=== PATIENT | female | born 1965 | race African-American/Black ===

== ENCOUNTER → 2017-01-28 | Outpatient (CLI) | payer MEDICAID ==
--- NOTE | 2017-01-28 12:24 | WOMENS IMAGING REPORT ---
EXAM DESCRIPTION: BILAT SCREENING MAMMO W/CAD COMPLETED DATE/TIME: 01/28/2017 11:39 am REASON FOR STUDY: SCREENING MAMMO Z12.31 ENCNTR SCREEN MAMMOGRAM FOR MALIGNANT NEOPLASM OF JG COMPARISON: None. TECHNIQUE: Standard craniocaudal and mediolateral oblique views of each breast recorded using digita l acquisition. LIMITATIONS: None. FINDINGS: RIGHT BREAST MASSES: No discrete mass CALCIFICATIONS: Extensive pleomorphic calcifications upper outer quadrant. ARCHITECTURAL DISTORTION: None. DEVELOPING DENSITY: None. ASYMMETRY: Focal area of asymmetry in architecture distortion upper outer quadrant associated with ca lcifications. OTHER: No other significant findings. LEFT BREAST MASSES: No suspicious masses. CALCIFICATIONS: No new or suspicious calcifications. ARCHITECTURAL DISTORTION: None. DEVELOPING DENSITY: None. ASYMMETRY: None noted. OTHER: No other significant findings. Read with the assistance of CAD. .[facility] - R2 Cenova Version 1.3 .[facility] Imaging - R2 Cenova Version 1.3 .[facility] - R2 Cenova Version 2.4 .[facility] [place] - R2 Cenova Version 2.4 .[facility] - R2 Dye Colorist Dyer Version 9.2 IMPRESSION: Area of calcifications architecture distortion and asymmetry highly suspicious for malig tori upper outer quadrant of the right breast BREAST DENSITY: a. The breasts are almost entirely fatty. BIRAD: 0 Incomplete: Needs Additional Imaging Evaluation and/or prior Mammograms for Comparison. RECOMMENDATION: RECOMMENDED FOLLOW-UP: Ultrasound exam of the upper outer quadrant to assess for mas s. Biopsy with stereotactic or ultrasound guidance. The patient will be contacted for additional imaging. COMMENT: The patient has been notified of the results by letter per SA requirements. Additional no tification policies are in place for contacting patient with suspicious or incomplete findings. Quality ID #[id number]: [employer] [place] recommends an annual screening mammogram for women aged 40 years or over. This facility utilizes a reminder system to ensure that all patients receive reminder letters, and/or direct phone calls for appointments. This includes reminders for routine scr eening mammograms, diagnostic mammograms, or other Breast Imaging Interventions when appropriate. Th is patient will be placed in the appropriate reminder system. The [employer] [place] [employer] ([employer]) has developed recommendations for screening MRI of the breast s in certain patient populations, to be used in conjunction with mammography. Breast MRI surveillanc e may be appropriate for women with more than 20% lifetime risk of developing breast cancer as deter mined by genetic testing, significant family history of the disease, or history of mantle radiation f or Hodgkins Disease. ACR Practice Guidelines 2008. TECHNICAL DOCUMENTATION: FINDING NUMBER: (1) ASSESSMENT: (1) JOB ID: [id number] [employer]- All Rights Reserved
== END ==
LOC: WI 10:42
PROVIDERS: ATTEND Internal Medicine
DX: Z12.31 Encounter for screening mammogram for malignant neoplasm of breast (principal)
CPT/HCPCS: 77067; G0202

== ENCOUNTER 2017-02-17 09:24 | Emergency (ER) | payer MEDICAID ==
[2017-02-17] MEDS ORDERED: TETRACAINE HCL 0.5% OPH SOLN 2 ML OU ONE (09:53)
--- NOTE | 2017-02-17 09:59 | ER Document Report ---
ED General - General Chief Complaint: Eye Problem Stated Complaint: VAGINAL PAIN Time Seen by Provider: 02/17/17 09:38 Mode of Arrival: Ambulatory Information source: Patient Notes: 52-year-old female presents to ED for complaint of pain and drainage since yesterday. She also has vaginal pain for a week she states she has a knot on her right labia and that she has had knots on her labia as before that have had to be opened. She states she also has 2 kn on her left labia that are all painful. TRAVEL OUTSIDE OF THE [place] IN LAST 30 DAYS: No - HPI Onset: Other - See above Onset/Duration: Gradual Quality of pain: Achy - To the, Pressure - To the vaginal area Severity: Severe Pain Level: 5 Associated symptoms: Other - Bilateral eye pain and drainage, vaginal drainage pain with knots on left and right labia Exacerbated by: Movement Relieved by: Denies Similar symptoms previously: Yes Recently seen / treated by doctor: No - Related Data Allergies/Adverse Reactions: amoxicillin Allergy (Verified 02/17/17 09:28) Penicillins Allergy (Verified 02/17/17 09:28) Home Medications: Current Home Medications Albuterol Sulfate [Proair Hfa Inhalation Aerosol 8.5 gm Mdi] 1 puff IH Q4 PRN [History] Lisinopril/Hydrochlorothiazide [Lisinopril-Hctz 10-12.5 mg Tab] 10 mg PO DAILY 02/17/17 [History] Past Medical History - General Information source: Patient - Social History Smoking Status: Current Every Day Smoker Cigarette use (# per day): Yes - One third pack per day Chew tobacco use (# tins/day): No Smoking Education Provided: Yes - 4 minute Frequency of alcohol use: Occasional Drug Abuse: Marijuana Occupation: Disabled Lives with: Friend - Rheumatic Family History: Arthritis, CAD, COPD, CVA, DM, Hyperlipidemia, Hypertension, Malignancy, Thyroid Disfunction Patient has suicidal ideation: No Patient has homicidal ideation: No - Past Medical History Cardiac Medical History: Reports: Hx Hypercholesterolemia, Hx Hypertension Pulmonary Medical History: Reports: Hx Asthma, Hx Bronchitis, Hx Sleep Apnea EENT Medical History: Reports: None Neurological Medical History: Reports: Hx Migraine Endocrine Medical History: Reports: None Renal/ Medical History: Reports: Hx Kidney Stones, Hx Pelvic Inflammatory Disease, Other - Endometriosis Malignancy Medical History: Reports: None GI Medical History: Reports: None Musculoskeltal Medical History: Reports Hx Musculoskeletal Deformity, Reports Hx Musculoskeletal Trauma Skin Medical History: Reports None Psychiatric Medical History: Reports: None Traumatic Medical History: Reports: None Infectious Medical History: Reports: None Past Surgical History: Reports: Hx Gynecologic Surgery - Uterine ablation and scraping, Other - Pilonidal cyst Review of Systems - Review of Systems Constitutional: No symptoms reported EENT: Eye pain, Eye discharge Cardiovascular: No symptoms reported Respiratory: No symptoms reported Gastrointestinal: No symptoms reported Genitourinary: No symptoms reported Female Genitourinary: Other - Knots on left and right labia Musculoskeletal: No symptoms reported Skin: No symptoms reported Hematologic/Lymphatic: No symptoms reported Neurological/Psychological: No symptoms reported -: Yes All other systems reviewed and negative Physical Exam - Vital signs Vitals: Temp Pulse Resp BP Pulse Ox 98.2 F 70 18 133/85 H 96 02/17/17 09:31 02/17/17 09:31 02/17/17 09:31 02/17/17 09:31 02/17/17 09:31 Interpretation: Normal - General General appearance: Appears well, Alert - HEENT Head: Normocephalic, Atraumatic Eyes: Normal Conjunctiva: Injected, Purulent discharge Eyelashes: Matted Pupils: PERRL Ears: Normal External canal: Normal Tympanic membrane: Normal Sinus: Normal Nasal: Purulent discharge, Swelling Mouth/Lips: Normal Mucous membranes: Normal Pharynx: Post nasal drainage Neck: Normal - Respiratory Respiratory status: No respiratory distress Chest status: Nontender Breath sounds: Normal Chest palpation: Normal - Cardiovascular Rhythm: Regular Heart sounds: Normal auscultation Murmur: No - Abdominal Inspection: Normal Distension: No distension Bowel sounds: Normal Tenderness: Nontender Organomegaly: No organomegaly - Back Back: Normal, Nontender - Extremities General upper extremity: Normal inspection, Nontender, Normal color, Normal ROM , Normal temperature General lower extremity: Normal inspection, Nontender, Normal color, Normal ROM , Normal temperature, Normal weight bearing. No: Lisa's sign - Neurological Neuro grossly intact: Yes Cognition: Normal Orientation: AAOx4 Hayden Coma Scale Eye Opening: Spontaneous Hayden Coma Scale Verbal: Oriented Hayden Coma Scale Motor: Obeys Commands Hayden Coma Scale Total: 15 Speech: Normal Motor strength normal: LUE, RUE, LLE, RLE Sensory: Normal - Psychological Associated symptoms: Normal affect, Normal mood - Skin Skin Temperature: Warm Skin Moisture: Dry Skin Color: Normal Course - Re-evaluation Re-evalutation: 02/17/17 20:[address] Gregg who recommended consult with ophthalmology which I spoke with Dr. Kyle who agreed to have the patient be seen in his office at 1 PM. Patient was discharged at 1154 and instructed to go to see Dr. Kyle at 1 PM. - Vital Signs Vital signs: Temp Pulse Resp BP Pulse Ox 98.0 F 60 18 143/98 H 95 02/17/17 11:52 02/17/17 11:52 02/17/17 11:52 02/17/17 11:52 02/17/17 11:52 Discharge - Discharge Clinical Impression: Bartholin cyst, rash to face possible shingles, Pain, eye, right Condition: Stable Disposition: HOME, SELF-CARE Additional Instructions: Bartholin Gland Cyst or Abcess The Bartholin glands are located on each side of the entrance to the vagina. These glands secrete lubricating fluid. If a gland becomes plugged, it can create a "Bartholin's cyst." This creates a large bulge on one side of the labia. A cyst is usually not very painful. If a Bartholin's cyst or gland becomes infected, it creates an abscess. This is a painful collection of pus. One side of the labia becomes swollen, red , and painful. It will be very painful to walk or sit. When a Bartholin's cyst causes mild symptoms, it can sometimes be treated with sitz baths and antibiotics. A painful abscess usually needs to be drained ( lanced). If there are signs of infection in the tissues around the abscess, we prescribe antibiotics. Antibiotics are not always necessary for an abscess that' s been drained. If packing has been placed, it's important to follow up as scheduled for removal or replacement of the packing. Return if you have increasing fever, body aches, lightheadedness, or if the swelling and pain is getting worse. Shingles You have shingles. Shingles is caused by the chicken pox virus, The virus has been surviving dormant in a nerve cell since you had chicken pox years ago. The virus has spread down a nerve root to reach the skin. Typically, an band-like area of pain and skin sensitivity develops, then small blisters erupt in the area. Shingles lasts two or three weeks, but sometimes leaves persistent pain. You are contagious -- you can give children chicken pox. But you can't give anyone shingles. Antiviral medicines (such as acyclovir or famciclovir) can help, but the rash usually worsens for about a week. Pain medication is often given if the area hurts. Antihistamines such as Benadryl may be necessary for itching if it does not respond to soda baths and calamine lotion. Sometimes cortisone medicine or nerve-block shots are necessary if pain is severe. If the area remains severely painful as the sores heal, or if you suspect an infection developing in the sores, see your doctor. Acyclovir Acyclovir (Zovirax) is used to treat infections caused by the Herpes family of viruses. It's available as capsules or ointment. Zovirax is most effective if started at the first sign of the viral outbreak. It can decrease the severity and duration of symptoms. However, it doesn't eliminate the virus from the body completely. If you're prone to repeated outbreaks of herpes, you'll continue to have attacks. Apply ointment with a disposable glove or finger-cot to avoid spreading the virus with your finger. If pills have been prescribed, take them for the full recommended course. Occasionally, mild nausea or headaches may occur. Call the doctor if you develop wheezing, itching, rash, shortness of breath , or lightheadedness. Doxycycline Doxycycline (Vibramycin, Doryx) is an antibiotic of the tetracycline family. This type of drug is useful for infections of the respiratory tract and genital tract, and is sometimes used for intestinal infections. Unlike most tetracyclines, doxycycline can be taken with food. It is longer acting, and (usually) less prone to side effects than regular tetracycline. Tetracycline antibiotics can stain immature teeth and SHOULD NOT BE TAKEN BY CHILDREN, NURSING MOTHERS, OR WOMEN. Tetracyclines can make you more prone to sunburn. Abdominal cramping, nausea, and diarrhea are occasional side effects. Women may experience vaginal yeast infections. Call the doctor at once if you develop hives, itching, shortness of breath , or lightheadedness. FOLLOW-UP CARE: If you have been referred to a physician for follow-up care, call the physician s office for an appointment as you were instructed or within the next two days. If you experience worsening or a significant change in your symptoms, notify the physician immediately or return to the Emergency Department at any time for re-evaluation. Prescriptions: Acyclovir 800 mg PO 5XD #35 tablet Doxycycline Hyclate 100 mg PO BID #20 capsule Forms: Elevated Blood Pressure, Smoking Cessation Education Referrals: DION ROBERTS MD [ACTIVE STAFF] - Follow up as needed YENNY KYLE MD [ACTIVE STAFF] - 02/17/17 1:00 pm (see Dr Kyle at 1 pm )
[2017-02-17] MEDS ORDERED: DOXYCYCLINE HYCLATE 100 MG TABLET PO ONE (11:06)
[2017-02-17] MEDS ORDERED: ACYCLOVIR 200 MG CAPSULE PO ONE (11:06)
[2017-02-17 11:07] LABS: BACTERIA (WET MOUNT) 3+ BACTERIA SEEN; EPITHELIALS (WET MOUNT) 3+ EPITHELIALS SEEN; RBCS (WET MOUNT) NO RBCS SEEN; T.VAGINALIS (WET MOUNT) NO TRICHOMONAS SEEN; WBCS (WET MOUNT) 2+ WBCS SEEN; YEAST (WET MOUNT) NO YEAST SEEN
[2017-02-17 12:04] VITALS: BP 143/98
[2017-02-17 13:26] LABS: CHLAM PCR NOT DETECTED (NOT DETECT)
[2017-02-17 13:27] LABS: GON PCR NOT DETECTED (NOT DETECT)
== END 2017-02-17 11:54 | disposition home or self-care (01) ==
LOC: ER 09:24
DX: N75.0 Cyst of Bartholin's gland (principal); R21 Rash and other nonspecific skin eruption; H57.13 Ocular pain, bilateral; H57.8 Other specified disorders of eye and adnexa; R09.82 Postnasal drip; I10 Essential (primary) hypertension; J45.909 Unspecified asthma, uncomplicated; F17.210 Nicotine dependence, cigarettes, uncomplicated; Z71.6 Tobacco abuse counseling; Z88.0 Allergy status to penicillin
CPT/HCPCS: 99284; 87210; 87491; 87591; J3490 ×2

== ENCOUNTER 2017-04-13 08:43 | Emergency (ER) | payer MEDICAID ==
[2017-04-13 08:53] VITALS: BP 149/69
--- NOTE | 2017-04-13 09:36 | ER Document Report ---
HPI - HPI Patient complains to provider of: Skin rash to perineum Onset: Last week Onset/Duration: Persistent Quality of pain: Burning Pain Level: 3 Context: Patient complains of painful skin rash to perineum. Patient states she has had this for about the last week but has similar problem about 2 months ago. Patient denies any fever. Associated Symptoms: denies: Fever Exacerbated by: Denies Relieved by: Denies Similar symptoms previously: Yes Recently seen / treated by doctor: No - ROS ROS below otherwise negative: Yes Systems Reviewed and Negative: Yes All other systems reviewed and negative - CONSTITUTIONAL Constitutional: DENIES: Fever, Chills - REPRODUCTIVE Reproductive: DENIES: : Notes: Pain to perineum - DERM Skin Problems: Rash Past Medical History - General Information source: Patient - Social History Smoking Status: Current Every Day Smoker Smoking Education Provided: Yes Frequency of alcohol use: Occasional Drug Abuse: None Occupation: none Family History: Arthritis, CAD, COPD, CVA, DM, Hyperlipidemia, Hypertension, Malignancy, Thyroid Disfunction - Past Medical History Cardiac Medical History: Reports: Hx Hypercholesterolemia, Hx Hypertension Pulmonary Medical History: Reports: Hx Asthma, Hx Bronchitis, Hx Sleep Apnea Neurological Medical History: Reports: Hx Migraine Renal/ Medical History: Reports: Hx Kidney Stones, Hx Pelvic Inflammatory Disease. Denies: Hx Peritoneal Dialysis Musculoskeltal Medical History: Reports Hx Musculoskeletal Deformity, Reports Hx Musculoskeletal Trauma Surgical Hx: Negative Past Surgical History: Reports: Hx Gynecologic Surgery - Uterine ablation and scraping, Other - Pilonidal cyst Vertical Provider Document - CONSTITUTIONAL Agree With Documented VS: Yes Exam Limitations: No Limitations General Appearance: WD/WN, No Apparent Distress - INFECTION CONTROL TRAVEL OUTSIDE OF THE [place] IN LAST 30 DAYS: No - HEENT HEENT: Atraumatic, Normocephalic - NECK Neck: Normal Inspection - RESPIRATORY Respiratory: Breath Sounds Normal, No Respiratory Distress, Chest Non-Tender. negative: Wheezing O2 Sat by Pulse Oximetry: 100 - CARDIOVASCULAR Cardiovascular: Regular Rate, Regular Rhythm - REPRODUCTIVE Female Genitalia: Abnormal Inspection - Patient with tender shallow ulcerations inside labia minora - BACK Back: Normal Inspection - MUSCULOSKELETAL/EXTREMETIES Musculoskeletal/Extremeties: KAILASH LAWS - NEURO Level of Consciousness: Awake, Alert, Appropriate Motor/Sensory: No Motor Deficit - DERM Integumentary: Warm, Dry, Rash - Shallow ulcerations that are tender to touch to the labia minora Course - Re-evaluation Re-evalutation: 04/13/17 09:34 The patient has been informed that they may have pre-hypertension or hypertension based on a blood pressure reading in the emergency department. I recommend that patient call the primary care provider listed on their discharge instructions or a physician of their choice by this week to arrange follow-up for further evaluation of possible pre-hypertension or hypertension. - Vital Signs Vital signs: Temp Pulse Resp BP Pulse Ox 97.8 F 56 L 18 149/69 H 100 04/13/17 08:49 04/13/17 08:49 04/13/17 08:49 04/13/17 08:49 04/13/17 08:49 Discharge - Discharge Clinical Impression: History of asthma, Hx of essential hypertension Genital herpes Qualifiers: Herpes simplex infection site: vulvovaginitis Qualified Code(s): A60.04 - Herpesviral vulvovaginitis Condition: Stable Disposition: HOME, SELF-CARE Instructions: Asthma ([facility]), Genital Herpes ([facility]), Inhaled Bronchodilators ([facility]) Additional Instructions: Return immediately for any new or worsening symptoms Followup with your primary care provider, call tomorrow to make a followup appointment Prescriptions: Albuterol Sulfate [Ventolin Hfa] 2 puff IH Q4HP PRN #17 gm PRN Reason: Valacyclovir HCl [Valacyclovir] 1,000 mg PO BID #20 tablet Forms: Elevated Blood Pressure, Smoking Cessation Education Referrals: DION ROBERTS MD [Primary Care Provider] - Follow up as needed
== END 2017-04-13 09:55 | disposition home or self-care (01) ==
LOC: ER 08:43
DX: A60.04 Herpesviral vulvovaginitis (principal); J45.909 Unspecified asthma, uncomplicated; I10 Essential (primary) hypertension; F17.200 Nicotine dependence, unspecified, uncomplicated
CPT/HCPCS: 87250; 99282